=== PATIENT | male | born 1990 | race Two or more races ===

== ENCOUNTER 2022-07-18 19:11 | Emergency (ER) | payer MEDICAID ==
[~2022-07-18] VITALS: Ht 175.3 cm; Wt 79.5 kg
[2022-07-18] MEDS ORDERED: BACITRACIN ZINC OINT UDPKT TOP ONE (21:30)
[2022-07-18] MEDS ORDERED: HYDROCODONE/ACETAMINOPHEN 5/325MG TABLET PO ONE (21:30)
[2022-07-18 21:42] VITALS: BP 119/80
[2022-07-18] MEDS ORDERED: ACET-2708 MT (22:19)
[2022-07-18] MEDS ORDERED: BO1 TP (22:19)
== END 2022-07-18 22:37 | disposition home or self-care (01) ==
LOC: ER 19:11
DX: S50.812A Abrasion of left forearm, initial encounter (principal); W18.39XA Other fall on same level, initial encounter; Y93.89 Activity, other specified; Y92.89 Other specified places as the place of occurrence of the external cause; Y99.8 Other external cause status; M25.522 Pain in left elbow
CPT/HCPCS: 73080; 99283; Z7610